=== PATIENT | female | born 2000 | race Caucasian/White ===

== ENCOUNTER 2019-04-02 01:28 | Emergency (ER) | payer BC, OTHER ==
--- NOTE | 2019-04-02 01:41 | EDPHY ---
H & P Stated Complaint: burning with urination and flank pain Time Seen by Provider: 04/02/19 01:41 HPI/ROS: HPI CHIEF COMPLAINT: Urinary frequency, dysuria, low back pain. HISTORY OF PRESENT ILLNESS: Patient is a very pleasant 18-year-old female, she presents emergency room with urinary infection type symptoms she reports urinary frequency, dysuria, low back pain that started earlier last week. She had some leftover antibiotics from a previous urinary tract infection and took them. She states she got better for a few days however now her urinary frequency and dysuria and low back pain is back. She denies any fever, denies vomiting denies significant abdominal pain. She is concerned she may have a urinary tract infection again. Past Medical History: Denies medical history Past Surgical History: Denies surgical history Social History: Denies drugs alcohol tobacco. [employer] student. Family History: Noncontributory ROS REVIEW OF SYSTEMS: 10 Systems were reviewed and negative with the exception of the elements mentioned in the history of present illness. Exam Constitutional triage nursing summary reviewed, vital signs reviewed, awake/ alert. Eyes normal conjunctivae and sclera, EOMI, PERRLA. HENT normal inspection, atraumatic, moist mucus membranes, no epistaxis, neck supple/ no meningismus, no raccoon eyes. Respiratory clear to auscultation bilaterally, normal breath sounds, no respiratory distress, no wheezing. Cardiovascular rate normal, regular rhythm, no murmur, no edema, distal pulses normal. Gastrointestinal soft, non-tender, no rebound, no guarding, normal bowel sounds, no distension, no pulsatile mass. Genitourinary no significant CVA tenderness on exam no CVA tenderness. Musculoskeletal no midline vertebral tenderness, full range of motion, no calf swelling, no tenderness of extremities, no meningismus, good pulses, neurovascularly intact. Skin pink, warm, & dry, no rash, skin atraumatic. Neurologic awake, alert and oriented x 3, AAOx3, moves all 4 extremities equally, motor intact, sensory intact, CN II-XII intact, normal cerebellar, normal vision, normal speech. Psychiatric normal mood/affect. Heme/Lymph/Immune no lymphadenopathy. Differential Diagnosis: Includes but is not limited to in a particular order UTI, cystitis, pyelonephritis Medical Decision Making: Plan for this patient check urinalysis, urine , and re-evaluate. Re-evaluation: Urinalysis him reviewed shows no evidence of acute infection. Given the patient's low back pain, worse on the left than right, as well as dysuria, urinary frequency, I will add gonorrhea chlamydia, additionally she complains of left worsening left-sided back pain while in the emergency room. It could be possible she has gonorrhea chlamydia however patient denies this but would like to be tested. Will send dirty catch urine. Additionally giving that she complained of left CVA left back pain plan for line and labs, I will evaluate for kidney stone or other causes of CVA tenderness, back pain. CT scan abdomen pelvis without contrast for flank pain and low back pain shows no acute intra-abdominal pelvic abnormality. There is an irregular periods of right T1 transverse process likely an age- indeterminate fracture Patient does not have any pain around this area, she has left-sided low back pain left CVA pain. No pain around T1. No pain in her upper thoracic spine. I discussed results of blood work with the patient as well as CT scan results. I do not have a great reason for low back pain urinary frequency and dysuria. However she has been on Bactrim recently maybe this masked and infection. Plan for Keflex and peridium, plan for anti-inflammatory pain medicine and ice and rest. It Is also possible that this is musculoskeletal back pain. I do recommend she return to the emergency room if worsening back pain abdominal pain, fever, vomiting, not doing well Patient is comfortable this plan. Additionally she received IV Toradol and feels much better. Source: Patient - Personal History LMP (Females 10-55): 15-21 Days Ago Current Tetanus/Diphtheria Vaccine: Unsure Current Tetanus Diphtheria and Acellular Pertussis (TDAP): Unsure - Medical/Surgical History Hx Asthma: Yes Hx Chronic Respiratory Disease: No Hx Diabetes: No Hx Cardiac Disease: No Hx Renal Disease: No Hx Cirrhosis: No Hx Alcoholism: No Hx HIV/AIDS: No Hx Splenectomy or Spleen Trauma: No Other PMH: denies - Social History Smoking Status: Current every day smoker Constitutional: Initial Vital Signs Temperature (C) 37.2 C 04/02/19 01:29 Heart Rate 92 04/02/19 01:29 Respiratory Rate 16 04/02/19 01:29 Blood Pressure 125/76 H 04/02/19 01:29 O2 Sat (%) 94 04/02/19 01:29 O2 Delivery Mode Room Air Allergies/Adverse Reactions: No Known Allergies Allergy (Unverified 04/02/19 01:32) Home Medications: Medication Instructions Recorded Birthcontrol 04/02/19 Cephalexin [Keflex] 500 mg PO Q6H #28 cap 04/02/19 Phenazopyridine HCl [Pyridium] 200 mg PO TID #15 tab 04/02/19 Medical Decision Making - Data Points Laboratory Results: Laboratory Results 04/02/19 03:30 04/02/19 03:30 04/02/19 04/02/19 04/02/19 04:29 03:30 03:30 WBC 7.52 10^3/uL 10^3/uL (3.80-9.50) RBC 4.20 10^6/uL 10^6/uL (4.18-5.33) Hgb 13.7 g/dL g/dL (12.6-16.3) Hct 40.4 % % (38.0-47.0) MCV 96.2 fL fL (81.5-99.8) MCH 32.6 pg pg (27.9-34.1) MCHC 33.9 g/dL g/dL (32.4-36.7) RDW 11.7 % % (11.5-15.2) Plt Count 276 10^3/uL 10^3/uL (150-400) MPV 9.9 fL fL (8.7-11.7) Neut % (Auto) 50.2 % % (39.3-74.2) Lymph % (Auto) 39.2 % % (15.0-45.0) [place] % (Auto) 7.6 % % (4.5-13.0) Eos % (Auto) 2.4 % % (0.6-7.6) Baso % (Auto) 0.5 % % (0.3-1.7) Nucleat RBC Rel Count 0.0 % % (0.0-0.2) Absolute Neuts (auto) 3.77 10^3/uL 10^3/uL (1.70-6.50) Absolute Lymphs (auto) 2.95 10^3/uL 10^3/uL (1.00-3.00) Absolute Monos (auto) 0.57 10^3/uL 10^3/uL (0.30-0.80) Absolute Eos (auto) 0.18 10^3/uL 10^3/uL (0.03-0.40) Absolute Basos (auto) 0.04 10^3/uL 10^3/uL (0.02-0.10) Absolute Nucleated RBC 0.00 10^3/uL 10^3/uL (0-0.01) Immature Gran % 0.1 % % (0.0-1.1) Immature Gran # 0.01 10^3/uL 10^3/uL (0.00-0.10) Sodium 138 mEq/L mEq/L (135-145) Potassium 3.9 mEq/L mEq/L (3.5-5.2) Chloride 106 mEq/L mEq/L (97-110) Carbon Dioxide 22 mEq/l mEq/l (22-31) Anion Gap 10 mEq/L mEq/L (6-14) BUN 15 mg/dL mg/dL (7-23) Creatinine 0.9 mg/dL mg/dL (0.6-1.0) Estimated GFR > 60 Glucose 108 mg/dL H mg/dL (70-100) Calcium 9.5 mg/dL mg/dL (8.5-10.4) Total Bilirubin 0.4 mg/dL mg/dL (0.1-1.4) Conjugated Bilirubin 0.1 mg/dL mg/dL (0.0-0.5) Unconjugated Bilirubin 0.3 mg/dL mg/dL (0.0-1.1) AST 20 IU/L IU/L (14-46) ALT 31 IU/L IU/L (9-52) Alkaline Phosphatase 52 IU/L IU/L (38-126) Total Protein 6.7 g/dL g/dL (6.3-8.2) Albumin 4.0 g/dL g/dL (3.5-5.0) Lipase 214 IU/L IU/L (23-300) Urine Color Urine Appearance Urine pH Ur Specific [place] Urine Protein Urine Ketones Urine Blood Urine Nitrate Urine Bilirubin Urine Urobilinogen Ur Leukocyte Esterase Urine Glucose Urine Test N.gonorrhoeae RNA (TMA) Pending 04/02/19 04/02/19 01:40 01:40 WBC RBC Hgb Hct MCV MCH MCHC RDW Plt Count MPV Neut % (Auto) Lymph % (Auto) [place] % (Auto) Eos % (Auto) Baso % (Auto) Nucleat RBC Rel Count Absolute Neuts (auto) Absolute Lymphs (auto) Absolute Monos (auto) Absolute Eos (auto) Absolute Basos (auto) Absolute Nucleated RBC Immature Gran % Immature Gran # Sodium Potassium Chloride Carbon Dioxide Anion Gap BUN Creatinine Estimated GFR Glucose Calcium Total Bilirubin Conjugated Bilirubin Unconjugated Bilirubin AST ALT Alkaline Phosphatase Total Protein Albumin Lipase Urine Color YELLOW Urine Appearance HAZY Urine pH 6.0 (5.0-7.5) Ur Specific [place] 1.026 (1.002-1.030) Urine Protein NEGATIVE (NEGATIVE) Urine Ketones TRACE H (NEGATIVE) Urine Blood NEGATIVE (NEGATIVE) Urine Nitrate NEGATIVE (NEGATIVE) Urine Bilirubin NEGATIVE (NEGATIVE) Urine Urobilinogen NEGATIVE EU EU (0.2-1.0) Ur Leukocyte Esterase NEGATIVE (NEGATIVE) Urine Glucose NEGATIVE (NEGATIVE) Urine Test NEGATIVE N.gonorrhoeae RNA (TMA) Medications Given: Discontinued Medications Acetaminophen (Tylenol) 1,000 mg PO EDNOW ONE Stop: 04/02/19 03:23 Last Admin: 04/02/19 03:31 Dose: 1,000 mg Sodium Chloride (Ns) 1,000 mls @ 0 mls/hr IV EDNOW ONE; Wide Open PRN Reason: Protocol Stop: 04/02/19 03:22 Last Admin: 04/02/19 03:31 Dose: 1,000 mls Ketorolac Tromethamine (Toradol) 15 mg IVP EDNOW ONE Stop: 04/02/19 04:09 Last Admin: 04/02/19 04:15 Dose: 15 mg Departure - Departure Disposition: Home, Routine, Self-Care Clinical Impression: Urinary tract infection, Back pain Condition: Good Instructions: Urinary Tract Infection in Women (ED), Back Pain (ED), Flank Pain (ED) Additional Instructions: 1. Drink lots of fluids stay well-hydrated 2. Return to the emergency room if develops worsening symptoms includes abdominal pain, fever, vomiting, not doing well 3. Antibiotics as prescribed. 4. Recommend anti-inflammatory pain medicine like Tylenol and/or Motrin. 5. Rest and stay well-hydrated. Referrals: Patient,NotPresent [Unknown] - As per Instructions [facility] [Clinic] - As per Instructions Prescriptions: Cephalexin [Keflex] 500 mg PO Q6H #28 cap Phenazopyridine HCl [Pyridium] 200 mg PO TID #15 tab
[2019-04-02] MEDS ORDERED: NS 1,000 ML IV ONE (03:21)
[2019-04-02] MEDS ORDERED: ACETAMINOPHEN 500 MG TAB PO ONE (03:22)
[2019-04-02 03:40] LABS: PLATELET COUNT 276 10^3/uL (150-400)
[2019-04-02] MEDS ORDERED: KETOROLAC 15 MG/1 ML SDV IVP ONE (04:08)
[2019-04-02 05:57] VITALS: BP 119/78
== END 2019-04-02 05:57 | disposition home or self-care (01) ==
DX: N39.0 Urinary tract infection, site not specified (principal); M54.5 Low back pain; E86.9 Volume depletion, unspecified
CPT/HCPCS: 96374; J1885